=== PATIENT | female | born 1935 | race African-American/Black ===

== ENCOUNTER 2023-01-21 15:58 | Inpatient (IN) | payer MEDICARE, OTHER ==
[~2023-01-21] VITALS: Ht 167.6 cm; Wt 78.9 kg
[~2023-01-21 15:58] MED LIST: AMLO-138 PO; AMLO1CAP; ASPI-1406; CHLO25TA2 PO; CLOP-31 PO; DORZ1DRO7 OP; FOLI-43 PO; ISOS1TAB2 PO; SIMV-43 PO; TRAV2.5D6 BOTHEYE
[2023-01-21] MEDS ORDERED: LINA5TAB PO (16:38)
[2023-01-21] MEDS ORDERED: EMPA10TA PO (16:39)
[2023-01-21] MEDS ORDERED: ASPI-1497 PO (16:41)
[2023-01-21] MEDS ORDERED: IOHEXOL-350 100 ML BOTTLE ONE (16:49)
[2023-01-21] MEDS ORDERED: LABETALOL 5MG/ML SYR 20 MG/4 ML SYRINGE IV ONE ×3 (17:15→20:00)
[2023-01-21] MEDS ORDERED: CLOPIDOGREL 75MG TABLET PO ONE (17:15)
[2023-01-21] MEDS ORDERED: ASPIRIN 325MG TABLET PO ONE (17:15)
[2023-01-21 17:17] LABS: BASOPHILS % 0.6 % (0.0-2.0); EOSINOPHILS % 5.9 % (0.0-5.0); HEMOGLOBIN. 12.7 g/dL (12.0-16.0); LYMPHOCYTES % 30.7 % (20.0-50.0); MEAN CORPUSCULAR HEMOGLOBIN 28.9 pg (28.0-32.0); MEAN CORPUSCULAR VOLUME 86.5 fL (81.0-99.0); MEAN PLATELET VOLUME 8.4 fl (7.4-10.4); MONOCYTES % 12.2 % (2.0-8.0); NEUTROPHILS % 50.6 % (40.0-76.0); PLATELET 259 x1000/uL (130-400); RED BLOOD CELL COUNT 4.39 mill/uL (4.2-5.4); RED CELL DISTRIBUTION WIDTH 14.9 % (11.6-14.6)
[2023-01-21 17:25] LABS: CHLORIDE 107 mEq/L (98-107)
[2023-01-21 17:27] LABS: PROTHROMBIN TIME 10.8 sec (9.6-11.0)
[2023-01-21 17:35] LABS: ETHANOL BLOOD < 10 mg/dL
[2023-01-21] MEDS ORDERED: HYDRALAZINE 20MG/ML VIAL IV ONE (22:00)
[2023-01-21] MEDS ORDERED: ACETAMINOPHEN 650MG SUPP PR PRN ×2 (23:00)
[2023-01-21] MEDS ORDERED: ONDANSETRON HCL 4MG/2ML INJ IV PRN (23:00)
[2023-01-22] MEDS: SODIUM CHLORIDE 0.45% 1,000 ML IV SCH ×2 (00:18→13:16)
[2023-01-22] MEDS: HYDRALAZINE 20MG/ML VIAL IV SCH ×6 (01:40→21:34)
[2023-01-22 06:26] LABS: CHLORIDE 107 mEq/L (98-107)
[2023-01-22 06:39] LABS: CREATINE KINASE MB FRACTION < 1.0 ng/mL (0.5-3.6)
[2023-01-22 06:43] LABS: HDL CHOLESTEROL 57 mg/dL (40-59); LDL CHOLESTEROL 42 mg/dL (5-100)
[2023-01-22 08:15] VITALS: BP 158/58
[2023-01-22] MEDS ORDERED: DEXTROSE 50% WATER 50ML SYRINGE IV PRN ×2 (08:30)
[2023-01-22] MEDS ORDERED: ENOXAPARIN 30MG/0.3ML SYR SUBCUT SCH (09:00)
[2023-01-22] MEDS ORDERED: LISI20TA31 PO (11:20)
[2023-01-22] MEDS ORDERED: *PATIENT'S OWN MEDICATION STORAGE XX SCH (11:45)
[2023-01-22 12:06] VITALS: BP 194/86
[2023-01-22] MEDS: INSULIN LISPRO 100 UNITS/ML SUBCUT SCH ×3 (12:10→21:00)
[2023-01-22] MEDS: BLOOD SUGAR DIAGNOSTIC STRIP TEST SCH ×3 (12:15→21:51)
[2023-01-22 13:07] VITALS: BP 188/88
[2023-01-22] MEDS: ENALAPRIL 2.5MG/2ML VIAL 2ML IV SCH ×2 (13:16→17:35)
[2023-01-22] MEDS ORDERED: LABETALOL 5MG/ML SYR 20 MG/4 ML SYRINGE IV PRN (13:30)
[2023-01-22] MEDS: LOSARTAN POTASSIUM 50 MG TABLET PO SCH (14:39)
[2023-01-22] MEDS: DORZOLAM/TIMOLOL 2.23/0.68% OPHTH DROPS 10ML BOTHEYE SCH ×2 (14:39→21:35)
[2023-01-22 16:21] VITALS: BP 198/86
[2023-01-22 17:24] LABS: CREATINE KINASE MB FRACTION 1.1 ng/mL (0.5-3.6)
[2023-01-22 17:29] VITALS: BP 166/58
[2023-01-22] MEDS: AMLODIPINE 5MG TABLET PO SCH (19:31)
[2023-01-22 20:00] VITALS: BP 145/78
[2023-01-22] MEDS: ATORVASTATIN CALCIUM 40MG TABLET PO SCH (21:00)
[2023-01-22 22:41] LABS: FOLIC ACID (FOLATE) SERUM 16.2 ng/mL (>5.38)
[2023-01-22 23:11] LABS: T4 FREE 1.22 ng/dL (0.76-1.46)
[2023-01-23] MEDS: HYDRALAZINE 20MG/ML VIAL IV SCH ×3 (02:45→08:00)
[2023-01-23 04:00] VITALS: BP 165/72
[2023-01-23] MEDS: SODIUM CHLORIDE 0.45% 1,000 ML IV SCH ×2 (04:09→18:22)
[2023-01-23] MEDS: BLOOD SUGAR DIAGNOSTIC STRIP TEST SCH ×4 (06:55→21:05)
[2023-01-23] MEDS: INSULIN LISPRO 100 UNITS/ML SUBCUT SCH ×4 (06:55→21:00)
[2023-01-23 08:00] VITALS: BP 182/73
[2023-01-23] MEDS: CLOPIDOGREL 75MG TABLET PO SCH (09:15)
[2023-01-23] MEDS: ASPIRIN 81MG EC TABLET PO SCH (09:15)
[2023-01-23] MEDS: AMLODIPINE 5MG TABLET PO SCH (09:16)
[2023-01-23] MEDS: LOSARTAN POTASSIUM 50 MG TABLET PO SCH (09:16)
[2023-01-23] MEDS: DORZOLAM/TIMOLOL 2.23/0.68% OPHTH DROPS 10ML BOTHEYE SCH ×2 (09:24→21:05)
[2023-01-23] MEDS: ENALAPRIL 2.5MG/2ML VIAL 2ML IV SCH ×2 (09:24→18:24)
[2023-01-23 12:00] VITALS: BP 96/65
[2023-01-23] MEDS: HYDRALAZINE 20MG/ML VIAL IV PRN (14:32)
[2023-01-23 16:00] VITALS: BP 146/48
[2023-01-23 17:06] VITALS: BP 146/48
[2023-01-23] MEDS: CYANOCOBALAMIN 1000MCG/ML VIAL IM SCH (18:23)
[2023-01-23] MEDS: ENOXAPARIN 80MG/0.8ML SYR SUBCUT SCH ×2 (18:23→21:45)
[2023-01-23 20:00] VITALS: BP 159/59
[2023-01-23] MEDS: ATORVASTATIN CALCIUM 40MG TABLET PO SCH (21:04)
[2023-01-23 22:36] LABS: CLARITY URINE CLEAR (CLEAR); COLOR URINE DARK YELLOW (YELLOW); KETONES URINE 1+ (NEGATIVE); LEUKOCYTE ESTERASE URINE NEGATIVE (NEGATIVE); NITRITE URINE NEGATIVE (NEGATIVE); OCCULT BLOOD URINE NEGATIVE (NEGATIVE); PROTEIN URINE 1+ (NEGATIVE); SPECIFIC GRAVITY URINE 1.033 (1.005-1.030)
[2023-01-24] VITALS: BP 149/70
[2023-01-24 04:00] VITALS: BP 150/68
[2023-01-24] MEDS: BLOOD SUGAR DIAGNOSTIC STRIP TEST SCH ×4 (05:40→21:02)
[2023-01-24] MEDS: SODIUM CHLORIDE 0.45% 1,000 ML IV SCH (05:40)
[2023-01-24 06:13] LABS: BASOPHILS % 0.6 % (0.0-2.0); EOSINOPHILS % 4.2 % (0.0-5.0); HEMATOCRIT. 31.7 % (36.0-48.0); HEMOGLOBIN. 10.4 g/dL (12.0-16.0); LYMPHOCYTES % 27.7 % (20.0-50.0); MEAN CORPUSCULAR HEMOGLOBIN 28.7 pg (28.0-32.0); MEAN CORPUSCULAR VOLUME 87.9 fL (81.0-99.0); MEAN PLATELET VOLUME 8.2 fl (7.4-10.4); NEUTROPHILS % 54.5 % (40.0-76.0); PLATELET 259 x1000/uL (130-400); RED CELL DISTRIBUTION WIDTH 15.7 % (11.6-14.6)
[2023-01-24] MEDS: INSULIN LISPRO 100 UNITS/ML SUBCUT SCH ×4 (06:28→21:00)
[2023-01-24 08:00] VITALS: BP 151/77
[2023-01-24] MEDS: AMLODIPINE 5MG TABLET PO SCH (08:30)
[2023-01-24] MEDS: ENALAPRIL 2.5MG/2ML VIAL 2ML IV SCH ×2 (08:30→16:42)
[2023-01-24] MEDS: CYANOCOBALAMIN 1000MCG/ML VIAL IM SCH (08:30)
[2023-01-24] MEDS: ASPIRIN 81MG EC TABLET PO SCH (08:30)
[2023-01-24] MEDS: CLOPIDOGREL 75MG TABLET PO SCH (08:30)
[2023-01-24] MEDS: LOSARTAN POTASSIUM 50 MG TABLET PO SCH (08:30)
[2023-01-24] MEDS: DORZOLAM/TIMOLOL 2.23/0.68% OPHTH DROPS 10ML BOTHEYE SCH ×2 (08:30→21:01)
[2023-01-24] MEDS: ENOXAPARIN 80MG/0.8ML SYR SUBCUT SCH ×2 (10:43→21:00)
[2023-01-24 12:00] VITALS: BP 127/58
[2023-01-24 16:00] VITALS: BP 159/61
[2023-01-24 20:00] VITALS: BP 156/56
[2023-01-24] MEDS: ATORVASTATIN CALCIUM 40MG TABLET PO SCH (21:02)
[2023-01-25] VITALS (7 sets, daily range): BP systolic 128–166; BP diastolic 52–73
[2023-01-25] MEDS: SODIUM CHLORIDE 0.45% 1,000 ML IV SCH (03:22)
[2023-01-25] MEDS: BLOOD SUGAR DIAGNOSTIC STRIP TEST SCH ×4 (06:46→21:34)
[2023-01-25] MEDS: INSULIN LISPRO 100 UNITS/ML SUBCUT SCH ×4 (06:47→21:00)
[2023-01-25] MEDS: ASPIRIN 81MG EC TABLET PO SCH (08:54)
[2023-01-25] MEDS: CYANOCOBALAMIN 1000MCG/ML VIAL IM SCH (08:54)
[2023-01-25] MEDS: CLOPIDOGREL 75MG TABLET PO SCH (08:55)
[2023-01-25] MEDS: LOSARTAN POTASSIUM 50 MG TABLET PO SCH (08:58)
[2023-01-25] MEDS: AMLODIPINE 5MG TABLET PO SCH (08:59)
[2023-01-25] MEDS: DORZOLAM/TIMOLOL 2.23/0.68% OPHTH DROPS 10ML BOTHEYE SCH ×2 (08:59→21:34)
[2023-01-25] MEDS: ENOXAPARIN 80MG/0.8ML SYR SUBCUT SCH ×2 (08:59→21:33)
[2023-01-25] MEDS: ENALAPRIL 2.5MG/2ML VIAL 2ML IV SCH ×2 (09:35→16:47)
[2023-01-25] MEDS ORDERED: ACETAMINOPHEN 650MG/20.3ML UDC PO NR (21:15)
[2023-01-25] MEDS: ATORVASTATIN CALCIUM 40MG TABLET PO SCH (21:34)
[2023-01-26] VITALS: BP 181/50
[2023-01-26 04:00] VITALS: BP 168/60
[2023-01-26] MEDS: SODIUM CHLORIDE 0.45% 1,000 ML IV SCH (04:01)
[2023-01-26] MEDS: BLOOD SUGAR DIAGNOSTIC STRIP TEST SCH ×4 (06:07→21:12)
[2023-01-26] MEDS: INSULIN LISPRO 100 UNITS/ML SUBCUT SCH ×4 (06:07→21:00)
[2023-01-26 08:14] VITALS: BP 140/50
[2023-01-26] MEDS: CYANOCOBALAMIN 1000MCG/ML VIAL IM SCH (09:42)
[2023-01-26] MEDS: DORZOLAM/TIMOLOL 2.23/0.68% OPHTH DROPS 10ML BOTHEYE SCH ×2 (09:42→20:59)
[2023-01-26] MEDS: ENALAPRIL 2.5MG/2ML VIAL 2ML IV SCH (09:42)
[2023-01-26] MEDS: ENOXAPARIN 80MG/0.8ML SYR SUBCUT SCH ×3 (11:57→22:48)
[2023-01-26 12:00] VITALS: BP 198/72
[2023-01-26] MEDS: CLOPIDOGREL 75MG TABLET PO SCH (12:49)
[2023-01-26] MEDS: AMLODIPINE 5MG TABLET PO SCH ×2 (12:49→20:58)
[2023-01-26] MEDS: ASPIRIN 81MG EC TABLET PO SCH (12:49)
[2023-01-26] MEDS: LOSARTAN POTASSIUM 100 MG TABLET PO SCH (12:51)
[2023-01-26 16:00] VITALS: BP 192/60
[2023-01-26] MEDS: DOCUSATE SODIUM SUGAR FREE 100MG/10ML UDC PO SCH (17:36)
[2023-01-26] MEDS: HYDRALAZINE 20MG/ML VIAL IV PRN (18:39)
[2023-01-26 20:00] VITALS: BP 171/63
[2023-01-26] MEDS: ATORVASTATIN CALCIUM 40MG TABLET PO SCH (20:58)
[2023-01-27] VITALS: BP 138/80
[2023-01-27 04:00] VITALS: BP 148/66
[2023-01-27] MEDS: BLOOD SUGAR DIAGNOSTIC STRIP TEST SCH ×4 (07:02→21:00)
[2023-01-27] MEDS: INSULIN LISPRO 100 UNITS/ML SUBCUT SCH ×4 (07:10→21:00)
[2023-01-27] MEDS: SODIUM CHLORIDE 0.45% 1,000 ML IV SCH (07:17)
[2023-01-27 08:00] VITALS: BP 138/53
[2023-01-27] MEDS: CYANOCOBALAMIN 1000MCG/ML VIAL IM SCH (09:11)
[2023-01-27] MEDS: DOCUSATE SODIUM SUGAR FREE 100MG/10ML UDC PO SCH ×2 (09:11→17:00)
[2023-01-27] MEDS: AMLODIPINE 5MG TABLET PO SCH ×2 (09:12→22:03)
[2023-01-27] MEDS: LOSARTAN POTASSIUM 100 MG TABLET PO SCH (09:12)
[2023-01-27] MEDS: ASPIRIN 81MG EC TABLET PO SCH (09:12)
[2023-01-27] MEDS: CLOPIDOGREL 75MG TABLET PO SCH (09:12)
[2023-01-27] MEDS: DORZOLAM/TIMOLOL 2.23/0.68% OPHTH DROPS 10ML BOTHEYE SCH ×2 (09:33→22:04)
[2023-01-27] MEDS: ENOXAPARIN 80MG/0.8ML SYR SUBCUT SCH ×2 (10:19→22:04)
[2023-01-27 12:00] VITALS: BP 145/55
[2023-01-27 16:00] VITALS: BP 119/53
[2023-01-27 20:00] VITALS: BP 163/65
[2023-01-27] MEDS: ATORVASTATIN CALCIUM 40MG TABLET PO SCH (22:03)
[2023-01-28] VITALS: BP 170/55
[2023-01-28] MEDS: SODIUM CHLORIDE 0.45% 1,000 ML IV SCH (03:59)
[2023-01-28 04:00] VITALS: BP 140/49
[2023-01-28 06:14] LABS: BASOPHILS % 0.5 % (0.0-2.0); EOSINOPHILS % 6.4 % (0.0-5.0); HEMATOCRIT. 32.4 % (36.0-48.0); HEMOGLOBIN. 10.7 g/dL (12.0-16.0); LYMPHOCYTES % 31.3 % (20.0-50.0); MEAN CORPUSCULAR HEMOGLOBIN 28.3 pg (28.0-32.0); MEAN CORPUSCULAR VOLUME 85.9 fL (81.0-99.0); MEAN PLATELET VOLUME 8.5 fl (7.4-10.4); MONOCYTES % 12.3 % (2.0-8.0); NEUTROPHILS % 49.5 % (40.0-76.0); PLATELET 258 x1000/uL (130-400); RED BLOOD CELL COUNT 3.77 mill/uL (4.2-5.4); RED CELL DISTRIBUTION WIDTH 14.7 % (11.6-14.6)
[2023-01-28] MEDS: INSULIN LISPRO 100 UNITS/ML SUBCUT SCH ×4 (06:32→21:00)
[2023-01-28] MEDS: BLOOD SUGAR DIAGNOSTIC STRIP TEST SCH ×4 (06:32→21:00)
[2023-01-28 07:29] LABS: CHLORIDE 113 mEq/L (98-107)
[2023-01-28 08:00] VITALS: BP 129/83
[2023-01-28] MEDS: DOCUSATE SODIUM SUGAR FREE 100MG/10ML UDC PO SCH ×2 (09:32→17:24)
[2023-01-28] MEDS: CLOPIDOGREL 75MG TABLET PO SCH (09:32)
[2023-01-28] MEDS: LOSARTAN POTASSIUM 100 MG TABLET PO SCH (09:33)
[2023-01-28] MEDS: AMLODIPINE 5MG TABLET PO SCH ×2 (09:33→23:39)
[2023-01-28] MEDS: ASPIRIN 81MG EC TABLET PO SCH (09:33)
[2023-01-28] MEDS: DORZOLAM/TIMOLOL 2.23/0.68% OPHTH DROPS 10ML BOTHEYE SCH ×2 (09:33→23:39)
[2023-01-28] MEDS: ENOXAPARIN 80MG/0.8ML SYR SUBCUT SCH ×2 (10:06→23:38)
[2023-01-28 12:00] VITALS: BP 171/68
[2023-01-28] MEDS: HYDRALAZINE HCL 25MG TABLET PO SCH ×2 (13:40→23:38)
[2023-01-28 16:00] VITALS: BP 137/62
[2023-01-28 20:00] VITALS: BP 186/63
[2023-01-28] MEDS: ATORVASTATIN CALCIUM 40MG TABLET PO SCH (23:40)
[2023-01-29] VITALS: BP 163/66
[2023-01-29 04:00] VITALS: BP 146/64
[2023-01-29] MEDS: SODIUM CHLORIDE 0.45% 1,000 ML IV SCH (05:39)
[2023-01-29] MEDS: HYDRALAZINE HCL 25MG TABLET PO SCH (06:50)
[2023-01-29] MEDS: BLOOD SUGAR DIAGNOSTIC STRIP TEST SCH ×4 (06:50→19:48)
[2023-01-29] MEDS: INSULIN LISPRO 100 UNITS/ML SUBCUT SCH ×4 (06:50→20:13)
[2023-01-29 08:00] VITALS: BP 145/63
[2023-01-29] MEDS: DOCUSATE SODIUM SUGAR FREE 100MG/10ML UDC PO SCH ×2 (09:18→17:00)
[2023-01-29] MEDS: HYDRALAZINE HCL 50MG TABLET PO SCH ×3 (09:19→21:08)
[2023-01-29] MEDS: LOSARTAN POTASSIUM 100 MG TABLET PO SCH (09:19)
[2023-01-29] MEDS: ASPIRIN 81MG EC TABLET PO SCH (09:19)
[2023-01-29] MEDS: AMLODIPINE 5MG TABLET PO SCH ×2 (09:19→21:09)
[2023-01-29] MEDS: CLOPIDOGREL 75MG TABLET PO SCH (09:19)
[2023-01-29] MEDS: DORZOLAM/TIMOLOL 2.23/0.68% OPHTH DROPS 10ML BOTHEYE SCH ×2 (09:19→21:08)
[2023-01-29 12:00] VITALS: BP 143/62
[2023-01-29] MEDS: ENOXAPARIN 80MG/0.8ML SYR SUBCUT SCH ×2 (12:03→22:05)
[2023-01-29 16:00] VITALS: BP 134/51
[2023-01-29 20:00] VITALS: BP 152/69
[2023-01-29] MEDS: ATORVASTATIN CALCIUM 40MG TABLET PO SCH (21:08)
[2023-01-30] VITALS: BP 131/52
[2023-01-30 04:00] VITALS: BP 131/51
[2023-01-30] MEDS: BLOOD SUGAR DIAGNOSTIC STRIP TEST SCH ×4 (05:07→20:10)
[2023-01-30] MEDS: INSULIN LISPRO 100 UNITS/ML SUBCUT SCH ×4 (05:31→20:10)
[2023-01-30] MEDS: HYDRALAZINE HCL 50MG TABLET PO SCH ×3 (05:53→22:45)
[2023-01-30 08:00] VITALS: BP 153/52
[2023-01-30] MEDS: ASPIRIN 81MG EC TABLET PO SCH (08:49)
[2023-01-30] MEDS: DOCUSATE SODIUM SUGAR FREE 100MG/10ML UDC PO SCH ×3 (08:50→16:50)
[2023-01-30] MEDS: LOSARTAN POTASSIUM 100 MG TABLET PO SCH (08:50)
[2023-01-30] MEDS: CLOPIDOGREL 75MG TABLET PO SCH (08:50)
[2023-01-30] MEDS: DORZOLAM/TIMOLOL 2.23/0.68% OPHTH DROPS 10ML BOTHEYE SCH ×2 (08:50→22:44)
[2023-01-30] MEDS: AMLODIPINE 5MG TABLET PO SCH ×2 (08:51→22:44)
[2023-01-30] MEDS: ENOXAPARIN 80MG/0.8ML SYR SUBCUT SCH ×2 (10:19→22:45)
[2023-01-30 12:00] VITALS: BP 131/50
[2023-01-30 16:00] VITALS: BP 140/50
[2023-01-30 20:00] VITALS: BP 159/56
[2023-01-30] MEDS: ATORVASTATIN CALCIUM 40MG TABLET PO SCH (22:45)
[2023-01-31] VITALS (7 sets, daily range): BP systolic 52–169; BP diastolic 47–70
[2023-01-31] MEDS: BLOOD SUGAR DIAGNOSTIC STRIP TEST SCH ×4 (05:36→20:59)
[2023-01-31] MEDS: INSULIN LISPRO 100 UNITS/ML SUBCUT SCH ×4 (05:36→20:59)
[2023-01-31] MEDS: HYDRALAZINE HCL 50MG TABLET PO SCH ×2 (05:54→17:10)
[2023-01-31] MEDS: DOCUSATE SODIUM SUGAR FREE 100MG/10ML UDC PO SCH ×2 (09:19→17:09)
[2023-01-31] MEDS: DORZOLAM/TIMOLOL 2.23/0.68% OPHTH DROPS 10ML BOTHEYE SCH ×2 (09:19→21:02)
[2023-01-31] MEDS: CLOPIDOGREL 75MG TABLET PO SCH (09:19)
[2023-01-31] MEDS: LOSARTAN POTASSIUM 100 MG TABLET PO SCH (09:20)
[2023-01-31] MEDS: AMLODIPINE 5MG TABLET PO SCH ×2 (09:20→21:01)
[2023-01-31] MEDS: ASPIRIN 81MG EC TABLET PO SCH (09:20)
[2023-01-31] MEDS: ENOXAPARIN 80MG/0.8ML SYR SUBCUT SCH (10:54)
[2023-01-31] MEDS: ATORVASTATIN CALCIUM 40MG TABLET PO SCH (21:01)
[2023-02-01] VITALS: BP 152/56
[2023-02-01] MEDS: HYDRALAZINE HCL 50MG TABLET PO SCH ×2 (01:16→06:27)
[2023-02-01] MEDS: ENOXAPARIN 80MG/0.8ML SYR SUBCUT SCH ×3 (01:16→21:42)
[2023-02-01 04:00] VITALS: BP 150/51
[2023-02-01] MEDS: BLOOD SUGAR DIAGNOSTIC STRIP TEST SCH ×4 (06:06→21:26)
[2023-02-01] MEDS: INSULIN LISPRO 100 UNITS/ML SUBCUT SCH ×4 (06:06→21:00)
[2023-02-01 08:14] VITALS: BP 159/50
[2023-02-01] MEDS: DOCUSATE SODIUM SUGAR FREE 100MG/10ML UDC PO SCH ×3 (08:43→17:15)
[2023-02-01] MEDS: CLOPIDOGREL 75MG TABLET PO SCH (08:43)
[2023-02-01] MEDS: AMLODIPINE 5MG TABLET PO SCH ×2 (08:43→21:37)
[2023-02-01] MEDS: LOSARTAN POTASSIUM 100 MG TABLET PO SCH (08:43)
[2023-02-01] MEDS: ASPIRIN 81MG EC TABLET PO SCH (08:43)
[2023-02-01] MEDS: DORZOLAM/TIMOLOL 2.23/0.68% OPHTH DROPS 10ML BOTHEYE SCH ×2 (08:44→21:37)
[2023-02-01 12:00] VITALS: BP 132/62
[2023-02-01] MEDS: HYDRALAZINE HCL 25MG TABLET PO SCH ×2 (13:45→21:42)
[2023-02-01 16:00] VITALS: BP 157/60
[2023-02-01 20:00] VITALS: BP 171/70
[2023-02-01] MEDS: ATORVASTATIN CALCIUM 40MG TABLET PO SCH (21:37)
[2023-02-02] VITALS: BP 121/69
[2023-02-02 04:00] VITALS: BP 134/48
[2023-02-02] MEDS: INSULIN LISPRO 100 UNITS/ML SUBCUT SCH ×4 (05:29→21:54)
[2023-02-02] MEDS: BLOOD SUGAR DIAGNOSTIC STRIP TEST SCH ×4 (05:29→21:11)
[2023-02-02] MEDS: HYDRALAZINE HCL 25MG TABLET PO SCH ×3 (05:33→22:02)
[2023-02-02 06:39] LABS: BASOPHILS % 0.7 % (0.0-2.0); EOSINOPHILS % 5.2 % (0.0-5.0); HEMATOCRIT. 32.7 % (36.0-48.0); LYMPHOCYTES % 29.6 % (20.0-50.0); MEAN CORPUSCULAR HEMOGLOBIN 29.2 pg (28.0-32.0); MONOCYTES % 12.6 % (2.0-8.0); NEUTROPHILS % 51.9 % (40.0-76.0); PLATELET 289 x1000/uL (130-400); RED BLOOD CELL COUNT 3.76 mill/uL (4.2-5.4); RED CELL DISTRIBUTION WIDTH 15.3 % (11.6-14.6)
[2023-02-02 08:39] VITALS: BP 116/62
[2023-02-02] MEDS: CLOPIDOGREL 75MG TABLET PO SCH (08:41)
[2023-02-02] MEDS: DOCUSATE SODIUM SUGAR FREE 100MG/10ML UDC PO SCH ×3 (08:41→17:39)
[2023-02-02] MEDS: LOSARTAN POTASSIUM 100 MG TABLET PO SCH (08:41)
[2023-02-02] MEDS: AMLODIPINE 5MG TABLET PO SCH ×2 (08:41→21:06)
[2023-02-02] MEDS: ASPIRIN 81MG EC TABLET PO SCH (08:41)
[2023-02-02] MEDS: DORZOLAM/TIMOLOL 2.23/0.68% OPHTH DROPS 10ML BOTHEYE SCH ×2 (08:42→21:47)
[2023-02-02] MEDS: ENOXAPARIN 80MG/0.8ML SYR SUBCUT SCH ×2 (10:23→21:47)
[2023-02-02 12:00] VITALS: BP 137/71
[2023-02-02 13:07] LABS: RENIN ACTIVITY PLASMA 0.283 ng/mL/hr (0.167-5.380)
[2023-02-02] MEDS ORDERED: HYDRALAZINE 10 MG in SODIUM CHLORIDE 0.9% 49.5 ML IV PRN (15:45)
[2023-02-02 20:00] VITALS: BP 135/63
[2023-02-02] MEDS: ATORVASTATIN CALCIUM 40MG TABLET PO SCH (21:06)
[2023-02-03] VITALS: BP 135/50
[2023-02-03 04:00] VITALS: BP 150/60
[2023-02-03] MEDS: HYDRALAZINE HCL 25MG TABLET PO SCH ×3 (06:25→22:02)
[2023-02-03 08:00] VITALS: BP 130/57
[2023-02-03] MEDS: DORZOLAM/TIMOLOL 2.23/0.68% OPHTH DROPS 10ML BOTHEYE SCH ×2 (09:00→21:03)
[2023-02-03] MEDS: AMLODIPINE 5MG TABLET PO SCH ×2 (10:49→20:54)
[2023-02-03] MEDS: DOCUSATE SODIUM SUGAR FREE 100MG/10ML UDC PO SCH ×3 (10:49→17:00)
[2023-02-03] MEDS: LOSARTAN POTASSIUM 100 MG TABLET PO SCH (10:49)
[2023-02-03] MEDS: ASPIRIN 81MG EC TABLET PO SCH (10:49)
[2023-02-03] MEDS: CLOPIDOGREL 75MG TABLET PO SCH (10:49)
[2023-02-03] MEDS: ENOXAPARIN 80MG/0.8ML SYR SUBCUT SCH ×2 (10:52→22:02)
[2023-02-03 12:00] VITALS: BP 139/87
[2023-02-03] MEDS: INSULIN LISPRO 100 UNITS/ML SUBCUT SCH ×3 (12:50→21:00)
[2023-02-03] MEDS: BLOOD SUGAR DIAGNOSTIC STRIP TEST SCH ×3 (13:03→21:02)
[2023-02-03 16:00] VITALS: BP 132/49
[2023-02-03 20:00] VITALS: BP 144/73
[2023-02-03] MEDS: ATORVASTATIN CALCIUM 40MG TABLET PO SCH (20:54)
[2023-02-04] VITALS: BP 148/55
[2023-02-04 04:00] VITALS: BP 139/64
[2023-02-04] MEDS: HYDRALAZINE HCL 25MG TABLET PO SCH ×3 (06:23→22:41)
[2023-02-04] MEDS: BLOOD SUGAR DIAGNOSTIC STRIP TEST SCH ×4 (06:29→21:18)
[2023-02-04] MEDS: INSULIN LISPRO 100 UNITS/ML SUBCUT SCH ×3 (07:50→21:00)
[2023-02-04] MEDS: CLOPIDOGREL 75MG TABLET PO SCH (09:48)
[2023-02-04] MEDS: DOCUSATE SODIUM SUGAR FREE 100MG/10ML UDC PO SCH ×2 (09:48→17:00)
[2023-02-04] MEDS: ASPIRIN 81MG EC TABLET PO SCH (09:48)
[2023-02-04] MEDS: LOSARTAN POTASSIUM 100 MG TABLET PO SCH (09:49)
[2023-02-04] MEDS: AMLODIPINE 5MG TABLET PO SCH ×2 (09:49→21:13)
[2023-02-04] MEDS: ENOXAPARIN 80MG/0.8ML SYR SUBCUT SCH ×2 (09:50→22:41)
[2023-02-04] MEDS: DORZOLAM/TIMOLOL 2.23/0.68% OPHTH DROPS 10ML BOTHEYE SCH ×2 (09:50→21:09)
[2023-02-04 12:00] VITALS: BP 146/54
[2023-02-04 16:00] VITALS: BP 147/58
[2023-02-04 20:00] VITALS: BP 158/64
[2023-02-04] MEDS: ATORVASTATIN CALCIUM 40MG TABLET PO SCH (21:10)
[2023-02-05] VITALS: BP 165/59
[2023-02-05 04:00] VITALS: BP 148/54
[2023-02-05] MEDS: HYDRALAZINE HCL 25MG TABLET PO SCH (06:29)
[2023-02-05] MEDS: BLOOD SUGAR DIAGNOSTIC STRIP TEST SCH ×2 (06:35→21:54)
[2023-02-05] MEDS: INSULIN LISPRO 100 UNITS/ML SUBCUT SCH ×2 (07:50→21:00)
[2023-02-05 08:00] VITALS: BP 146/52
[2023-02-05] MEDS: CLOPIDOGREL 75MG TABLET PO SCH (09:00)
[2023-02-05] MEDS: AMLODIPINE 5MG TABLET PO SCH ×2 (09:00→21:22)
[2023-02-05] MEDS: LOSARTAN POTASSIUM 100 MG TABLET PO SCH (09:00)
[2023-02-05] MEDS: DORZOLAM/TIMOLOL 2.23/0.68% OPHTH DROPS 10ML BOTHEYE SCH ×2 (09:00→21:22)
[2023-02-05] MEDS: ASPIRIN 81MG EC TABLET PO SCH (09:00)
[2023-02-05] MEDS: DOCUSATE SODIUM SUGAR FREE 100MG/10ML UDC PO SCH (09:00)
[2023-02-05] MEDS: ENOXAPARIN 80MG/0.8ML SYR SUBCUT SCH ×2 (10:45→22:36)
[2023-02-05 12:00] VITALS: BP 141/49
[2023-02-05] MEDS: HYDRALAZINE HCL 100MG TABLET PO SCH ×2 (14:26→22:37)
[2023-02-05] MEDS ORDERED: ERGOCALCIFEROL 50000UNITS CAPSULE PO SCH (15:00)
[2023-02-05 16:00] VITALS: BP 146/53
[2023-02-05 20:00] VITALS: BP 139/52
[2023-02-05] MEDS: ATORVASTATIN CALCIUM 40MG TABLET PO SCH (21:22)
[2023-02-06] VITALS (7 sets, daily range): BP systolic 117–166; BP diastolic 46–69
[2023-02-06] MEDS: HYDRALAZINE HCL 100MG TABLET PO SCH ×3 (06:00→19:53)
[2023-02-06] MEDS: INSULIN LISPRO 100 UNITS/ML SUBCUT SCH ×4 (07:41→21:00)
[2023-02-06] MEDS: BLOOD SUGAR DIAGNOSTIC STRIP TEST SCH ×4 (07:41→21:47)
[2023-02-06] MEDS: DOCUSATE SODIUM SUGAR FREE 100MG/10ML UDC PO SCH ×2 (08:37→16:17)
[2023-02-06] MEDS: AMLODIPINE 5MG TABLET PO SCH ×2 (08:37→19:19)
[2023-02-06] MEDS: LOSARTAN POTASSIUM 100 MG TABLET PO SCH (08:37)
[2023-02-06] MEDS: CLOPIDOGREL 75MG TABLET PO SCH (08:37)
[2023-02-06] MEDS: ASPIRIN 81MG EC TABLET PO SCH (08:37)
[2023-02-06] MEDS: DORZOLAM/TIMOLOL 2.23/0.68% OPHTH DROPS 10ML BOTHEYE SCH ×2 (08:38→22:02)
[2023-02-06] MEDS: ENOXAPARIN 80MG/0.8ML SYR SUBCUT SCH ×2 (10:45→22:02)
[2023-02-06] MEDS: ATORVASTATIN CALCIUM 40MG TABLET PO SCH (22:01)
[2023-02-07] VITALS: BP 134/59
[2023-02-07 04:00] VITALS: BP 145/51
[2023-02-07] MEDS: HYDRALAZINE HCL 100MG TABLET PO SCH (06:25)
[2023-02-07] MEDS: BLOOD SUGAR DIAGNOSTIC STRIP TEST SCH ×2 (07:20→12:25)
[2023-02-07] MEDS: INSULIN LISPRO 100 UNITS/ML SUBCUT SCH ×2 (07:50→12:26)
[2023-02-07 08:00] VITALS: BP 142/50
[2023-02-07] MEDS: LOSARTAN POTASSIUM 100 MG TABLET PO SCH (08:57)
[2023-02-07] MEDS: ASPIRIN 81MG EC TABLET PO SCH (08:57)
[2023-02-07] MEDS: AMLODIPINE 5MG TABLET PO SCH (08:57)
[2023-02-07] MEDS: CLOPIDOGREL 75MG TABLET PO SCH (08:57)
[2023-02-07] MEDS: DOCUSATE SODIUM SUGAR FREE 100MG/10ML UDC PO SCH (08:58)
[2023-02-07] MEDS: DORZOLAM/TIMOLOL 2.23/0.68% OPHTH DROPS 10ML BOTHEYE SCH (08:58)
[2023-02-07] MEDS: ENOXAPARIN 80MG/0.8ML SYR SUBCUT SCH (11:25)
== END 2023-02-07 12:49 | DRG 65 ==
LOC: ER 15:58 → EDBEDREQ 17:58 → EDBEDREQTM 17:58 → EDBEDREQSVC 17:58 → MICUSO 23:05 → 7EST 01-22 08:13 → 6EST 02-02 14:51
PROVIDERS: ADMIT Internal Medicine Endocrinology, Diabetes & Metabolism; ATTEND Internal Medicine Endocrinology, Diabetes & Metabolism
DX: I63.9 Cerebral infarction, unspecified (principal); G81.94 Hemiplegia, unspecified affecting left nondominant side; I16.1 Hypertensive emergency; R41.4 Neurologic neglect syndrome; I10 Essential (primary) hypertension; I27.20 Pulmonary hypertension, unspecified; M47.816 Spondylosis without myelopathy or radiculopathy, lumbar region; E78.5 Hyperlipidemia, unspecified; R29.707 NIHSS score 7; E11.51 Type 2 diabetes mellitus with diabetic peripheral angiopathy without gangrene; R47.1 Dysarthria and anarthria; E78.00 Pure hypercholesterolemia, unspecified; R47.01 Aphasia; M43.16 Spondylolisthesis, lumbar region; H40.9 Unspecified glaucoma; E55.9 Vitamin D deficiency, unspecified; M71.21 Synovial cyst of popliteal space [Baker], right knee; R13.10 Dysphagia, unspecified; Z79.02 Long term (current) use of antithrombotics/antiplatelets; Z79.82 Long term (current) use of aspirin; Z79.84 Long term (current) use of oral hypoglycemic drugs; Z63.4 Disappearance and death of family member; Z88.8 Allergy status to other drugs, medicaments and biological substances; Z79.899 Other long term (current) drug therapy; Z85.42 Personal history of malignant neoplasm of other parts of uterus; Z85.528 Personal history of other malignant neoplasm of kidney; Z87.891 Personal history of nicotine dependence; Z80.0 Family history of malignant neoplasm of digestive organs; Z83.3 Family history of diabetes mellitus; Z88.6 Allergy status to analgesic agent
CPT/HCPCS: 36415; 70496; 70498; 70551; 71045; 74230; 80048; 80053; 80061; 80320; 81003; 82088; 82306; 82553; 82607; 82746; 82962; 83036; 84244; 84439; 84443; 84481; 84484; 85025; 92523; 92610; 92611; 93005; 93306; 93880; 97110; 97112; 97163; 97167; 97530; 99291; C1893; G0378; J0360; J1650; J1815; J2405; J3420; J3490; Q9967; G0480